=== PATIENT | male | born 1970 | race African-American/Black ===

== ENCOUNTER 2016-10-14 10:51 | Emergency (ER) | payer OTHER ==
[2016-10-14] MEDS ORDERED: Ondansetron HCl/PF 4 MG/2 ML Vial ONE (11:14)
[2016-10-14 11:42] LABS: #Basophils 0.1 thou/uL (0.0-0.2); #Lymphocytes 1.6 thou/uL (1.20-3.40); #Monocytes 0.5 thou/uL (0.11-0.59); #Neutrophils 6.4 thou/uL (1.40-6.50); %Basophils 1.6 % (0.0-1.0); %Eosinophils 0.3 % (0.0-10.0); %Lymphocytes 18.5 % (21.0-51.0); %Monocytes 5.5 % (0.0-10.0); Hemoglobin 14.9 g/dL (14.0-18.0); Mean Corpuscular HGB CONC 34.6 g/dL (32.0-36.0); Mean Corpuscular Hemoglobin 30.5 pg (27.0-31.0); Mean Corpuscular Volume 88.1 fl (80.0-94.0); Mean Platelet Volume 8.5 fL (7.4-10.4); Platelet Count 161 thou/uL (130-400); RBC Distribution Width 12.5 % (11.5-14.5); White Blood Cell (WBC) Count 8.7 thou/uL (4.8-10.8)
[2016-10-14 11:48] LABS: ALT (SGPT) 62 U/L (8-55); AST (SGOT) 51 U/L (5-34); Albumin 4.1 g/dL (3.5-5.0); Alkaline Phosphatase 79 U/L (40-150); Anion Gap 17 mmol/L (10-20); BUN (Urea Nitrogen) 9 mg/dL (8.9-20.6); Bilirubin, Total 0.5 mg/dL (0.2-1.2); Calc. Creatinine Clearance 0 mL/min (70-130); Calcium 9.6 mg/dL (7.8-10.44); Carbon Dioxide 23 mmol/L (22-29); Chloride 103 mmol/L (98-107); Estimated GFR-MDRD Greater than 90; Globulin 3.7 g/dL (2.4-3.5); Glucose 330 mg/dL (70-105); Lipase 457 U/L (8-78); Potassium 4.7 mmol/L (3.5-5.1); Protein, Total 7.8 g/dL (6.0-8.3); Sodium 138 mmol/L (136-145)
[2016-10-14 11:49] LABS: Bilirubin Negative (Negative); Blood, Urine Trace (Negative); Clarity Clear (Clear); Glucose, Urine (Dipstick) 500 mg/dL (Negative); Leukocyte Negative (Negative); Nitrite Positive (Negative); Protein, Urine (Dipstick) 30 mg/dL (Neg-Trace); Urobilinogen 0.2 mg/dL (0.2-1.0)
[2016-10-14 11:55] LABS: Bacteria/HPF 2+ HPF (None Seen); RBC/HPF 0-3 HPF (0-3); Squamous Epithelial 0-3 HPF (0-3)
[2016-10-14] MEDS ORDERED: Insulin Regular 300 UNITS/3 ML VIAL ONE (12:51)
[2016-10-14] MEDS ORDERED: Morphine Sulfate 2 MG/ML SYRINGE ONE (13:25)
--- NOTE | 2016-10-14 18:04 | CT ---
CT ABDOMEN AND PELVIS WITH CONTRAST 10/14/[address] of the abdomen and pelvis was performed after IV contrast for evaluation of this patient w ith left sided pain. Axial slices were acquired, then coronal and sagittal reconstructions were done . The lung bases are clear. The liver shows some diffuse fatty infiltration but no focal lesions. No s tones were appreciated in the gallbladder. The kidneys showed no mass, hydronephrosis or renal calcu li. The abdominal aorta is normal in caliber. There is a definite area of streaking between the tail of the pancreas and the upper pole of the lef t kidney. The findings could come from either organ, being either a sign of pancreatitis or pyelonep hritis. The bowel shows no dilation, wall thickening, and there is no free air or free fluid. CT of the pelvis showed no pelvic masses, fluid collections or inflammatory changes. The patient has had prior lumbar fusion surgery in the lower lumbar region. IMPRESSION: Areas of streaking between the tail of the pancreas and left kidney which could be due to either taylor creatitis or pyelonephritis. Correlate with clinical presentation and labs. POS: HOME
== END 2016-10-14 14:20 | disposition left against medical advice (07) ==
LOC: BURERS 10:51
DX: K85.90 Acute pancreatitis without necrosis or infection, unspecified (principal); I10 Essential (primary) hypertension; E11.9 Type 2 diabetes mellitus without complications; G62.9 Polyneuropathy, unspecified; F31.9 Bipolar disorder, unspecified; F41.9 Anxiety disorder, unspecified; F17.210 Nicotine dependence, cigarettes, uncomplicated; Z79.2 Long term (current) use of antibiotics; Z79.891 Long term (current) use of opiate analgesic; Z79.899 Other long term (current) drug therapy
CPT/HCPCS: 36415; 36416; 74177; 80053; 81003; 81015; 83690; 85025; 87077; 87086; 87186; 96361; 96372; 96374; 96375; 96376; J1815; J2270; J2405

== ENCOUNTER 2017-02-02 22:29 | Emergency (ER) | payer OTHER ==
[2017-02-02] MEDS ORDERED: HYDROcodone/Acetaminophen 5/325 mg Tablet ONE (23:05)
[2017-02-02 23:21] LABS: Bilirubin Negative (Negative); Blood, Urine Trace (Negative); Clarity Clear (Clear); Glucose, Urine (Dipstick) 500 mg/dL (Negative); Leukocyte Negative (Negative); Nitrite Negative (Negative); Protein, Urine (Dipstick) Negative (Neg-Trace); Specific Gravity, Urine 1.008 (1.002-1.036); Urobilinogen 0.2 mg/dL (0.2-1.0)
[2017-02-02 23:27] LABS: RBC/HPF 0-3 HPF (0-3)
[2017-02-02 23:29] LABS: Squamous Epithelial 0-3 HPF (0-3); WBC/HPF 0-3 HPF (0-3)
[2017-02-02 23:30] LABS: Bacteria/HPF 2+ HPF (None Seen)
== END 2017-02-03 00:16 | disposition home or self-care (01) ==
LOC: BURERS 22:29
DX: S39.92XA Unspecified injury of lower back, initial encounter (principal); I10 Essential (primary) hypertension; G89.29 Other chronic pain; E11.9 Type 2 diabetes mellitus without complications; E11.40 Type 2 diabetes mellitus with diabetic neuropathy, unspecified; F31.9 Bipolar disorder, unspecified; F41.9 Anxiety disorder, unspecified; F17.210 Nicotine dependence, cigarettes, uncomplicated; X58.XXXA Exposure to other specified factors, initial encounter
CPT/HCPCS: 81003; 81015; 87077; 87086; 87186; 99283

== ENCOUNTER 2017-06-11 08:52 | Emergency (ER) | payer OTHER ==
--- NOTE | 2017-06-11 16:32 | CT ---
CT OF THE CERVICAL SPINE 06/11/[address] of the cervical spine was done following trauma. Axial slices were acquired, followed by co lucina and sagittal reconstructions. No fracture or dislocation was appreciated. The C1 to dens distance is normal and the soft tissues a re normal in thickness. The lateral soft tissues of the neck showed no acute changes. Findings by minoo rodriguez follow: C1-C2: No acute findings. C2-C3: Small disc osteophyte complex centrally without evidence of impingement. C3-C4: Minor left foraminal narrowing. C4-C5: No acute findings. There may be a slight central bulge of the disc but there is no impingement . C5-C6: No acute findings. C6-C7: No acute findings. C7-T1: No acute findings. Streak artifact makes it difficult to assess this level well. IMPRESSION: Mild degenerative changes but no acute findings. POS: HOME
--- NOTE | 2017-06-11 16:39 | CT ---
CT OF THE LUMBAR SPINE: DATE: 06/11/17. COMPARISON: Comparison is made with a 09/16/16 study. No acute fracture was demonstrated. There has been a prior posterior lumbar fusion at L4 through S1 with pedicle screws. Findings by level follow: T12-L1: No acute findings. L1-L2: No acute findings. L2-L3: No acute findings. L3-L4: Moderately severe central canal stenosis due to a combination of a diffusely bulging disk plu s facet and ligamentous hypertrophy. L4-L5: Laminectomy present. No acute findings. L5-S1: Laminectomy present. Degenerated disk. No acute findings. The SI joints were unremarkable. The visible soft tissue structures showed no acute change. IMPRESSION: No acute lumbar findings. Chronic changes as listed above which are quite similar to the prior CT sc an. POS: HOME
== END 2017-06-11 10:00 | disposition home or self-care (01) ==
LOC: BURERS 08:52
DX: M54.2 Cervicalgia (principal); M54.5 Low back pain; G89.29 Other chronic pain; E11.40 Type 2 diabetes mellitus with diabetic neuropathy, unspecified; F31.9 Bipolar disorder, unspecified; F41.9 Anxiety disorder, unspecified; I10 Essential (primary) hypertension; F17.210 Nicotine dependence, cigarettes, uncomplicated; Z79.84 Long term (current) use of oral hypoglycemic drugs; Z79.899 Other long term (current) drug therapy
CPT/HCPCS: 72125; 72131

== ENCOUNTER 2017-10-06 22:35 | Emergency (ER) | payer OTHER | END 2017-10-06 23:03 | disposition left against medical advice (07) | LOC: BURERS 22:35 | DX: S80.212A Abrasion, left knee, initial encounter (principal); I10 Essential (primary) hypertension; E11.9 Type 2 diabetes mellitus without complications; F41.9 Anxiety disorder, unspecified; F31.9 Bipolar disorder, unspecified; F17.210 Nicotine dependence, cigarettes, uncomplicated; Z79.84 Long term (current) use of oral hypoglycemic drugs; Z79.899 Other long term (current) drug therapy; W19.XXXA Unspecified fall, initial encounter | CPT/HCPCS: 99283 ==

== ENCOUNTER 2019-11-17 16:42 | Emergency (ER) | payer OTHER ==
--- NOTE | 2019-11-17 17:49 | CT ---
CT OF THE BRAIN WITHOUT CONTRAST: 11/17/19 The ventricles are normal in size with no shift. No intracranial bleeding or extra-axial hematoma was seen. There is no sign of mass, edema or stroke. The skull appears intact and the visible paranasal sinuses are clear. There has been no adverse change since a prior scan of 02/16/14. IMPRESSION: No acute intracranial findings. POS: HOME
[2019-11-17] MEDS ORDERED: Acetaminophen 500 MG TAB ONE (17:55)
--- NOTE | 2019-11-17 18:08 | CT ---
CT OF THE CERVICAL SPINE: 11/17/[address] of the cervical spine was performed following trauma. There is loss of the normal cervical lordosis which could be due to muscle spasm. No fracture, dislocation, or substantial disc space narr owing was seen. Some minor anterior osteophytes are seen at several cervical levels but there is no s ign of central canal stenosis or foraminal stenosis. There may be a very minor disc osteophyte comple x at C2-C3 centrally which does not appear to cause any particular impingement. IMPRESSION: Loss of cervical lordosis which may be due to spasm. Otherwise, no acute findings. POS: HOME
--- NOTE | 2019-11-17 21:47 | CT ---
CT OF THE LUMBAR SPINE 11/17/[address] of the lumbar spine was performed for evaluation after trauma. There has been a prior poste rior lumbar fusion with pedicles screws at the L2 through S1 levels. There is slight disc space narro wing at L3-L4 and marked disc space narrowing at L4-L5. Degenerated discs are particularly prominent at L2-L3 and L5-S1. No specific abnormality of the hardware was seen. There have been laminectomies a t the L3 through L5-S1 levels. No fracture or acute bony change was appreciated. Degenerative changes are present in the SI joints with some bridging osteophyte. IMPRESSION: Chronic and postop changes but no acute traumatic findings. Discussed reports of all scans on this patient with Dr. Dewitt at 1741 on 11/17/19. POS: HOME
== END 2019-11-17 17:50 | disposition home or self-care (01) ==
LOC: BURERS 16:42
DX: M54.5 Low back pain (principal); E78.5 Hyperlipidemia, unspecified; E78.00 Pure hypercholesterolemia, unspecified; I10 Essential (primary) hypertension; E11.40 Type 2 diabetes mellitus with diabetic neuropathy, unspecified; F41.9 Anxiety disorder, unspecified; F31.9 Bipolar disorder, unspecified; F17.210 Nicotine dependence, cigarettes, uncomplicated; V89.2XXA Person injured in unspecified motor-vehicle accident, traffic, initial encounter
CPT/HCPCS: 70450; 72125; 72131

== ENCOUNTER 2020-08-08 22:57 | Emergency (ER) | payer OTHER ==
[2020-08-08] MEDS ORDERED: Ketorolac Tromethamine 30 MG/ML VIAL ONE (23:19)
[2020-08-08] MEDS ORDERED: Dexamethasone 4 mg/ml Vial ONE (23:25)
== END 2020-08-08 23:32 | disposition home or self-care (01) ==
LOC: BURERS 22:57
DX: S40.011A Contusion of right shoulder, initial encounter (principal); M54.9 Dorsalgia, unspecified; G89.29 Other chronic pain; I10 Essential (primary) hypertension; E11.40 Type 2 diabetes mellitus with diabetic neuropathy, unspecified; F17.210 Nicotine dependence, cigarettes, uncomplicated; V89.2XXA Person injured in unspecified motor-vehicle accident, traffic, initial encounter
CPT/HCPCS: 96372; 99283; J1100; J1885

== ENCOUNTER 2021-05-05 00:23 | Emergency (ER) | payer OTHER | END 2021-05-05 01:18 | disposition home or self-care (01) | LOC: BURERS 00:23 | DX: B34.9 Viral infection, unspecified (principal); I10 Essential (primary) hypertension; E11.40 Type 2 diabetes mellitus with diabetic neuropathy, unspecified; F17.210 Nicotine dependence, cigarettes, uncomplicated; Z87.19 Personal history of other diseases of the digestive system; Z79.899 Other long term (current) drug therapy | CPT/HCPCS: 87081; 87430; 99284 ==